=== PATIENT | female | born 1940 | race Native Hawaiian/Other Pacific Islander ===

== ENCOUNTER 2017-09-05 11:49 | Outpatient (CLI) | payer OTHER, MEDICARE | END 2017-09-05 19:09 | disposition home or self-care (01) | LOC: LABW 11:49 | DX: D64.9 Anemia, unspecified (principal) | CPT/HCPCS: 36415; 82607; 82746; 83540; 83550; 84165; 85044 ==

== ENCOUNTER 2018-07-16 10:17 | Outpatient (CLI) | payer OTHER, MEDICARE | END 2018-07-16 19:46 | disposition home or self-care (01) | LOC: RAD 10:17 | DX: M54.5 Low back pain (principal) ==

== ENCOUNTER 2018-07-17 08:42 | Outpatient (CLI) | payer OTHER, MEDICARE ==
[~2018-07-17] VITALS: Ht 170.2 cm; Wt 114.3 kg
== END 2018-07-17 22:21 | disposition home or self-care (01) ==
LOC: NM 08:42
DX: R07.89 Other chest pain (principal)
CPT/HCPCS: A9500; J2785